=== PATIENT | female | born 1960 ===

== ENCOUNTER 2018-08-03 18:37 | Emergency (ER) | payer OTHER ==
[2018-08-03 18:37] VITALS: BMI 25.0
[2018-08-03 18:54] VITALS: BP 129/78; PULSE 75; RESP 18; TEMP 97.7; O2SAT 100
--- NOTE | 2018-08-03 20:35 | C.PDOC ---
History Of Present Illness 58 year old female presents to ED with complaints of lower back pain radiating down the right leg for 2 days. Additionally reports pressure and pain to lower abdomen with associated urine frequency. She took Advil earlier today without relief. She reports pain is worsened with standing, walking or bending motion. She denies any fall, heavy lifting, injury, numbness, weakness. Time Seen by Provider: 08/03/18 19:20 Chief Complaint (Nursing): Female Genitourinary History Per: Patient History/Exam Limitations: no limitations Onset/Duration Of Symptoms: Days Past Medical History Reviewed: Historical Data, Nursing Documentation, Vital Signs Vital Signs: Last Vital Signs Temp 97.7 F 08/03/18 18:51 Pulse 75 08/03/18 18:51 Resp 18 08/03/18 18:51 BP 129/78 08/03/18 18:51 Pulse Ox 100 08/03/18 18:51 - Medical History PMH: Gastrointestinal Ulcer, HTN Other Surgeries: Tubal ligation Family History: States: Unknown Family Hx - Social History Hx Alcohol Use: No Hx Substance Use: No - Immunization History Hx Tetanus Toxoid Vaccination: No Hx Influenza Vaccination: No Hx Pneumococcal Vaccination: No Review Of Systems Except As Marked, All Systems Reviewed And Found Negative. Genitourinary: Positive for: Frequency Musculoskeletal: Positive for: Back Pain Physical Exam - Physical Exam Appears: Non-toxic, No Acute Distress Skin: Warm, Dry, No Rash, No Ecchymosis Head: Atraumatic, Normacephalic Eye(s): bilateral: Normal Inspection Neck: Normal ROM, No Paracervical Tenderness Chest: Symmetrical Cardiovascular: Rhythm Regular, No Murmur Respiratory: Normal Breath Sounds, No Wheezing Gastrointestinal/Abdominal: Soft, No Tenderness Back: Normal Inspection (no rash), No CVA Tenderness, No Vertebral Tenderness, No Decreased ROM, No Muscle Spasm, Paraspinal Tenderness (diffuse to lumbar region) Extremity: Bilateral: Atraumatic, Normal ROM Neurological/Psych: Oriented x3, Normal Speech Gait: Steady ED Course And Treatment O2 Sat by Pulse Oximetry: 100 Medical Decision Making Medical Decision Making: impression: low back pain plan: * IM Toradol, Flexeril * UA Progress: 2112 UA shows UTI. Bactrim ordered. Patient treated with analgesics and on re-eval she reported mild improvement of symptoms. She remained afebrile and in no acute distress. She was ambulatory without signs of discomfort. Patient to be discharged home with Rx. Disposition Counseled Patient/Family Regarding: Studies Performed, Diagnosis, Need For Followup, Rx Given - Disposition Referrals: Yessenia Raymundo MD [Medical Doctor] - Disposition: HOME/ ROUTINE Disposition Time: 21:25 Condition: GOOD Additional Instructions: [place] antibiticos dos veces al da y asegrese de terminar de nunu todos los antibiticos. Beber mucho lquido. [place] analgsicos segn sea necesario. Tenga en cuenta que Pyridium puede volver el color naranja de la orina, no se alarme. cleopatra a tavera mdico en lotus semana Prescriptions: Ibuprofen [Motrin] 600 mg PO Q8 #30 tab Phenazopyridine HCl [Pyridium] 200 mg PO Q8 #6 tablet Sulfamethoxazole/Trimethoprim [Bactrim DS 800 mg-160 mg] 1 tab PO BID #14 tab Instructions: Urinary Tract Infection, Adult (DC) Print Language: NICARAGUAN - POA Present On Arrival: None - Clinical Impression Clinical Impression: Low back pain, Cystitis
[2018-08-03 21:08] LABS: SQUAMOUS EPITHIAL 6 /hpf (0-5); URINE BACTERIA RARE (<OCC); URINE BILIRUBIN NEGATIVE (NEGATIVE); URINE BLOOD 1+ (NEGATIVE); URINE CLARITY Clear (Clear); URINE COLOR Straw (YELLOW); URINE GLUCOSE (UA) NORMAL (Normal); URINE LEUKOCYTE ESTERASE 3+ Leu/uL (Negative); URINE PROTEIN NEGATIVE (NEGATIVE); URINE UROBILINOGEN NORMAL mg/dL (0.2-1.0)
[2018-08-03] MEDS ORDERED: Tmp-Smz 800 mg-160 mg DS Tab PO STA (21:13)
[2018-08-03] MEDS ORDERED: Tmp-Smz 800 mg-160 mg DS Tab ONE (21:26)
== END 2018-08-03 21:30 | disposition home or self-care (01) ==
LOC: C.ER 18:37
DX: N30.90 Cystitis, unspecified without hematuria (principal); M54.5 Low back pain
CPT/HCPCS: 81001; 87086; 96372; 99284; J1885

== ENCOUNTER 2018-08-06 19:10 | Emergency (ER) | payer OTHER ==
[2018-08-06 19:11] VITALS: BMI 25.0
[2018-08-06 19:33] VITALS: RESP 20; O2SAT 99
[2018-08-06] MEDS ORDERED: Sodium Chloride 0.9% 500 ML IV ONE ×2 (20:06→20:42)
[2018-08-06 20:21] LABS: BASO % 0.5 % (0.0-2.0); EOS % 0.7 % (0.0-4.0); HEMOGLOBIN 12.9 g/dL (11.0-16.0); LYMPH % 42.9 % (20.0-40.0); MEAN CELL VOLUME 88.9 fL (81.0-99.0); MEAN CORPUSCULAR HGB CONC 33.7 g/dL (33.0-37.0); MEAN PLATELET VOLUME 7.1 fL (7.2-11.7); MONO # 0.5 K/uL (0.0-0.8); MONO % 6.6 % (0.0-10.0); NEUT # 3.4 K/uL (1.8-7.0); NEUT % 49.3 % (50.0-75.0); NRBC % 0.1 % (0.0-2.0); RBC 4.32 Mil/uL (3.80-5.20); RED CELL DISTRIBUTION WIDTH 12.6 % (11.5-14.5)
[2018-08-06 20:31] LABS: SQUAMOUS EPITHIAL 2 /hpf (0-5); URINE BACTERIA RARE (<OCC); URINE BILIRUBIN NEGATIVE (NEGATIVE); URINE BLOOD 1+ (NEGATIVE); URINE CLARITY Clear (Clear); URINE COLOR Straw (YELLOW); URINE GLUCOSE (UA) NORMAL (Normal); URINE LEUKOCYTE ESTERASE 3+ Leu/uL (Negative); URINE PROTEIN NEGATIVE (NEGATIVE); URINE UROBILINOGEN NORMAL mg/dL (0.2-1.0)
[2018-08-06 20:33] LABS: ALB/GLOB RATIO 1.4 (1.0-2.1); ALBUMIN 4.6 g/dL (3.5-5.0); ALT/SGPT 25 U/L (9-52); AST/SGOT 28 U/L (14-36); BLOOD UREA NITROGEN 19 mg/dL (7-17); CALCIUM 9.5 mg/dl (8.6-10.4); GFR NON-AFRICAN AMERICAN 57; LIPASE 75 U/L (23-300)
[2018-08-06] MEDS ORDERED: Oxycodone/Acetaminophen 5/325 mg Tab PO STA (22:19)
[2018-08-06] MEDS ORDERED: Oxycodone/Acetaminophen 5/325 mg Tab ONE (22:27)
--- NOTE | 2018-08-06 22:53 | C.PDOC ---
History Of Present Illness 58 year old female presents to the ER with a complaint of left sided flank pain and left lower abdominal pain intermittently for the past 10 days that worsen over the last 4 days. Patient was seen in the ER 3 days ago, diagnosed with UTI and discharge with pain medication and antibiotics, however, she states the pain feels different and is worsening. Patient also reports a Hx of chronic constipation, last bowel movement was small amount 4 days ago. Denies nausea, vomiting, fever, or chills. Time Seen by Provider: 08/06/18 19:47 Chief Complaint (Nursing): Abdominal Pain History Per: Patient History/Exam Limitations: no limitations Onset/Duration Of Symptoms: Days, Intermittent Episodes Current Symptoms Are (Timing): Worse Location Of Pain/Discomfort: LLQ Quality Of Discomfort: Unable To Describe Associated Symptoms: Constipation. denies: Fever, Chills, Nausea, Vomiting Exacerbating Factors: None Alleviating Factors: None Recent travel outside of the [place]: No Abnormal Vaginal Bleeding: No Past Medical History Reviewed: Historical Data, Nursing Documentation, Vital Signs Vital Signs: Last Vital Signs Temp 98 F 08/06/18 19:25 Pulse 83 08/06/18 19:25 Resp 20 08/06/18 19:25 BP 124/86 08/06/18 19:25 Pulse Ox 99 08/06/18 19:25 - Medical History PMH: Gastrointestinal Ulcer, HTN, Kidney Stones Family History: States: Unknown Family Hx - Social History Hx Alcohol Use: No Hx Substance Use: No - Immunization History Hx Tetanus Toxoid Vaccination: No Hx Influenza Vaccination: No Hx Pneumococcal Vaccination: No Review Of Systems Constitutional: Negative for: Fever, Chills Respiratory: Negative for: Cough Gastrointestinal: Positive for: Abdominal Pain. Negative for: Nausea, Vomiting Genitourinary: Negative for: Dysuria, Hematuria Musculoskeletal: Positive for: Other (Left flank pain) Physical Exam - Physical Exam Appears: Non-toxic Skin: Normal Color, Warm, Dry Head: Atraumatic, Normacephalic Eye(s): bilateral: Normal Inspection Oral Mucosa: Moist Neck: Normal, Supple Chest: Symmetrical, No Tenderness Cardiovascular: Rhythm Regular Respiratory: Normal Breath Sounds, No Rales, No Rhonchi, No Wheezing Gastrointestinal/Abdominal: Soft, Tenderness (LLQ), No Guarding, No Rebound Back: CVA Tenderness (Left) Extremity: Normal ROM (x4) Neurological/Psych: Oriented x3, Normal Speech Gait: Steady ED Course And Treatment - Laboratory Results Result Diagrams: 08/06/18 20:17 08/06/18 20:17 O2 Sat by Pulse Oximetry: 99 (Room air) Pulse Ox Interpretation: Normal - CT Scan/US CT abd/pel Other Rad Studies (CT/US): Read By Radiologist, Radiology Report Reviewed CT/US Interpretation: CT of the abdomen and pelvis without contrast. Clinical statement: Pain. Technique: Multiple axial CT images were obtained from the base of the lungs to the floor of the pelvis utilizing 5 mm axial slices without administration of contrast. Coronal and sagittal reconstructions were also obtained. DLP 280.91. Comparison: None. Findings: Chest: The visualized lung bases are clear. Abdomen: The kidneys are normal in size bilaterally. There is no evidence of hydronephrosis. A 2 mm nonobstructing stone is seen in the right kidney. There is also a 4 mm stone in the mid right ureter. The liver, spleen, pancreas, gallbladder and adrenal glands are unremarkable. The aorta demonstrates normal caliber and contour. There is no abdominal lymphadenopathy or ascites. Pelvis: Moderate amount of stool fills the colon. The bowel is otherwise unremarkable, with no obstructive or inflammatory changes. The appendix is normal. The urinary bladder is within normal limits. There is no pelvic lymphadenopathy or ascites. The other pelvic structures appear unremarkable. Bones: There are no suspicious osseous abnormalities seen. Impression: 1. 4 mm stone in the right ureter. 2 mm nonobstructing stone in the right kidney. No discrete evidence of hydronephrosis or hydroureter. 2. The left kidney and left renal collecting system appears unremarkable. 3. Mild constipation. No obstructive or inflammatory bowel changes. Progress Note: CT abd/pel, blood work, and urinalysis ordered. IV fluids and tor adol administered. Lab and imaging results discussed with patient. Pt resting comfortaly, pain improved after PO percocet. Pt advised to d/c bactrim and pyridium and will discharge home on cipro, flomax, miralax, and pain medication, and instructed to follow up with PMD or return if symptoms worsen. Reassessment Condition: Improved Disposition Counseled Patient/Family Regarding: Diagnosis, Need For Followup, Rx Given - Disposition Referrals: [facility] [Outside] Rene Lai MD [Staff Provider] - Disposition: HOME/ ROUTINE Disposition Time: 22:50 Condition: STABLE Additional Instructions: Please follow up with Urologist- Call for appointment Increase PO fluids Discontinue Bactrim and Pyridium Return to ER if fever, vomiting, severe pain or worse Prescriptions: Ciprofloxacin [Cipro] 1 tab PO BID #14 tab oxyCODONE/Acetaminophen [Percocet 5/325 mg Tab] 1 tab PO BID #5 tab Polyethylene Glycol 3350 [Miralax] 17 gm PO DAILY #1 bottle Tamsulosin HCl [Flomax] 0.4 mg PO DAILY #7 cap.er.24h Instructions: High Fiber Diet, Kidney Stones (DC) Forms: [employer] (Belarusian) - Clinical Impression Clinical Impression: Constipation, UTI (urinary tract infection), Renal colic - PA / TRAFFIC OPERATIONS ENGINEER / Resident Statement MD/DO has reviewed & agrees with the documentation as recorded. - Scribe Statement The provider has reviewed the documentation as recorded by the Batshevaibraji [place] All medical record entries made by the Batshevaibraji were at my direction and personally dictated by me. I have reviewed the chart and agree that the record accurately reflects my personal performance of the history, physical exam, medical decision making, and the department course for this patient. I have also personally directed, reviewed, and agree with the discharge instructions and disposition.
[2018-08-06 23:07] VITALS: BP 129/78; PULSE 73; TEMP 97.4
--- NOTE | 2018-08-07 07:55 | CT ---
Date of service: 08/06/2018 PROCEDURE: CT Abdomen and Pelvis without intravenous contrast HISTORY: Left flank pain COMPARISON: None. TECHNIQUE: Multiple contiguous axial images were performed through the abdomen and pelvis without the use of intravenous contrast. Subsequently, sagittal and coronal reformatted images were obtained. Radiation dose: Total exam DLP = 280.91 mGy-cm. This CT exam was performed using one or more of the following dose reduction techniques: Automated exposure control, adjustment of the mA and/or kV according to patient size, and/or use of iterative reconstruction technique. FINDINGS: LOWER THORAX: Mild atelectasis within the medial aspect of the right middle lobe. LIVER: Unremarkable. No gross lesion or ductal dilatation. GALLBLADDER AND BILE DUCTS: Unremarkable. PANCREAS: Unremarkable. No gross lesion or ductal dilatation. SPLEEN: Unremarkable. ADRENALS: Unremarkable. No mass. KIDNEYS AND URETERS: 3 millimeter nonobstructive calculus in the midpole of the right kidney. Additional 4 millimeter radiopaque focus seen at the level of the mid right ureter on series 3, image 94. This may represent a ureteral calculus versus adjacent calcified phlebolith. No gross hydroureteronephrosis. VASCULATURE: Unremarkable. No aortic aneurysm. No aortic atherosclerotic calcification or mural plaque present. BOWEL: Fecal retention in the colon. APPENDIX: Unremarkable. Normal appendix. PERITONEUM: Unremarkable. No free fluid. No free air. LYMPH NODES: Unremarkable. No enlarged lymph nodes. BLADDER: Unremarkable. REPRODUCTIVE: Unremarkable. BONES: No acute fracture. OTHER FINDINGS: Degenerative changes in the spine. IMPRESSION: 3 millimeter nonobstructive calculus in the midpole of the right kidney. Additional 4 millimeter radiopaque focus seen at the level of the mid right ureter on series 3, image 94. This may represent a ureteral calculus versus adjacent calcified phlebolith. No gross hydroureteronephrosis. Fecal retention in the colon. A preliminary report was generated at 10:11 p.m. on 08/06/[address] Lenin Ibarra from [employer]
== END 2018-08-06 22:45 | disposition home or self-care (01) ==
LOC: C.ER 19:10
DX: N39.0 Urinary tract infection, site not specified (principal); K59.00 Constipation, unspecified; N20.0 Calculus of kidney; Z87.442 Personal history of urinary calculi
CPT/HCPCS: 74176; 80053; 81001; 83690; 85025; 96374; 99284; J1885; J7040